=== PATIENT | male | born 1970 | race Caucasian/White ===

== ENCOUNTER 2017-08-25 09:49 | Day surgery (SDC) | payer OTHER ==
[2017-08-23 11:11] LABS: ALANINE AMINOTRANSFERASE 35 U/L (12-78); ALBUMIN 3.5 g/dL (3.4-5.0); ANION GAP 5 mmol/L (5-15); CALCIUM 8.6 mg/dL (8.5-10.1); CHLORIDE 109 mmol/L (98-107); CREATININE 0.94 mg/dL (0.7-1.3)
[2017-08-23 11:13] LABS: ALKALINE PHOSPHATASE 71 U/L (45-117); BILIRUBIN,TOTAL 0.6 mg/dL (0.2-1.0); TOTAL PROTEIN 7.4 g/dL (6.4-8.2)
[~2017-08-25] VITALS: Ht 175.3 cm; Wt 104.0 kg
[~2017-08-25 09:49] MED LIST: AMLO5TAB2 PO; LISI1TAB5 PO
[2017-08-25] MEDS ORDERED: LACTATED RINGERS 1,000 ML IV SCH (10:20)
[2017-08-25 10:34] VITALS: BP 153/94
[2017-08-25] MEDS ORDERED: NEOSPORIN OINT, 15GM ONE (11:44)
[2017-08-25] MEDS ORDERED: EPINEPHRINE 1 MG/ML, 1ML ONE (11:44)
[2017-08-25] MEDS ORDERED: BUPIVACAINE/PF 0.25% ONE (11:44)
[2017-08-25] MEDS ORDERED: EPHEDRINE 50 MG/ML, 1ML ONE (11:56)
[2017-08-25] MEDS ORDERED: FENTANYL PF 100 MCG/2ML ONE (12:00)
[2017-08-25] MEDS ORDERED: MIDAZOLAM 1 MG/ML, 2ML ONE (12:20)
[2017-08-25] MEDS ORDERED: DEXAMETHASONE 4 MG/ML, 1ML ONE ×3 (12:21)
[2017-08-25] MEDS ORDERED: CEFAZOLIN 1,000 MG ONE ×2 (12:23)
[2017-08-25] MEDS ORDERED: PROPOFOL 10 MG/ML, 20ML ONE (12:25)
[2017-08-25] MEDS ORDERED: SUCCINYLCHOLINE 20 MG/ML, 10ML ONE (12:25)
[2017-08-25] MEDS ORDERED: ONDANSETRON 2MG/ML, 2ML ONE (12:25)
[2017-08-25] MEDS ORDERED: METOCLOPRAMIDE 5 MG/ML, 2ML ONE (12:25)
[2017-08-25] MEDS ORDERED: LIDOCAINE-MPF 2% ,5ML ONE (12:25)
[2017-08-25] MEDS ORDERED: PHENYLEPHRINE 10 MG/ML ONE (12:31)
[2017-08-25] MEDS ORDERED: BUPIVACAINE/PF-EPI 0.25% 1:200K IM ONE (12:36)
[2017-08-25] MEDS ORDERED: BUPIVACAINE 0.25% ONE (13:05)
[2017-08-25] MEDS ORDERED: BUPIVACAINE/PF-EPI 0.25% 1:200K INFIL ONE (13:15)
[2017-08-25] MEDS ORDERED: OXYcodone 5 MG/5 ML ORAL.SOL UDC ONE (14:37)
[2017-08-25] MEDS ORDERED: OXYcodone 5 MG/5 ML ORAL.SOL UDC PO PRN (15:00)
[2017-08-25] MEDS ORDERED: ONDANSETRON 2MG/ML, 2ML IVPush PRN (15:00)
[2017-08-25] MEDS ORDERED: MIDAZOLAM 1 MG/ML, 2ML IV PRN (15:00)
[2017-08-25] MEDS ORDERED: HYDROmorphone 2 MG/ML, 1ML IV PRN (15:00)
[2017-08-25] MEDS ORDERED: MEPERIDINE/PF 25MG/0.5ML IVPush PRN (15:00)
[2017-08-25] MEDS ORDERED: FENTANYL PF 100 MCG/2ML IV PRN (15:00)
[2017-08-25] MEDS ORDERED: LABETALOL 5MG/ML, 20ML IV PRN (15:00)
== END 2017-08-25 19:00 ==
LOC: OUT 09:49
PROVIDERS: ATTEND Surgery
DX: M79.89 Other specified soft tissue disorders (principal); I10 Essential (primary) hypertension; Z72.89 Other problems related to lifestyle; Z98.890 Other specified postprocedural states; Z88.0 Allergy status to penicillin
CPT/HCPCS: 21933; 36415; 80053; 88304; J0171; J0330; J0690; J1100; J2250; J2370; J2405; J2704; J2765; J3010; J3490; J7120; 88305

== ENCOUNTER 2020-03-14 15:21 | Inpatient (IN) | payer OTHER ==
[~2020-03-14] VITALS: Ht 170.2 cm; Wt 106.2 kg
[~2020-03-14 15:21] MED LIST changes: +AMLO-150 PO; -AMLO5TAB2 PO; +LISI1TAB39 PO; -LISI1TAB5 PO
--- NOTE | 2020-03-14 15:58 | NUR ---
PER TREASURE CALVILLO, PT HAS (+) COVID-19. WAITING UNTIL PT HAS ROOM ASSIGNED THEN US CANBE DONE IN PT'S ROOM - US DELAY
[2020-03-14] MEDS ORDERED: ONDANSETRON 2MG/ML, 2ML IVPush ONE (16:00)
[2020-03-14] MEDS ORDERED: SODIUM CHLORIDE 0.9% 1,000ML IVBOLUS ONE (16:00)
[2020-03-14] MEDS ORDERED: MAALOX/HYOSCYAMINE/LIDOCAINE 45 ML BTL PO ONE (16:00)
[2020-03-14] MEDS ORDERED: SODIUM CHLORIDE FLUSH 10ML SYR IVF ONE (16:00)
[2020-03-14] MEDS ORDERED: FAMOTIDINE 20 MG/2 ML IV ONE (16:00)
--- NOTE | 2020-03-14 16:14 | NUR ---
US at bedside. RN at bedside.
--- NOTE | 2020-03-14 16:25 | NUR ---
US at bedside, lab at bedside, RN at bedside.
[2020-03-14] MEDS ORDERED: FAMOTIDINE 20 MG/2 ML ONE (16:27)
[2020-03-14] MEDS ORDERED: MAALOX/HYOSCYAMINE/LIDOCAINE 45 ML BTL ONE (16:27)
[2020-03-14] MEDS ORDERED: ONDANSETRON 2MG/ML, 2ML ONE (16:27)
[2020-03-14 16:48] LABS: BASOPHILS % (AUTO) 0 % (0-1); EOSINOPHILS % (AUTO) 0 % (1-7); LYMPHOCYTES % (AUTO) 16 % (22-44); MEAN CORPUSCULAR HEMOGLOBIN 29.3 pg (27.5-34.5); MEAN CORPUSCULAR HGB CONC 33.9 g/dL (33.2-36.2); MEAN PLATELET VOLUME 7.5 fL (7.4-10.4); MONOCYTES % (AUTO) 5 % (2-9); NEUTROPHILS % (AUTO) 79 % (42-75); PLATELET COUNT 164 x10^3/uL (130-400); RED BLOOD COUNT 4.86 x10^6/uL (4.38-5.82)
[2020-03-14 16:49] LABS: MD NO
[2020-03-14 16:55] LABS: ALANINE AMINOTRANSFERASE 42 U/L (12-78); ALBUMIN 3.2 g/dL (3.4-5.0); ANION GAP 3 mmol/L (5-15); CALCIUM 8.6 mg/dL (8.5-10.1); CHLORIDE 107 mmol/L (98-107); CREATININE 1.06 mg/dL (0.7-1.3)
[2020-03-14 16:57] LABS: ALKALINE PHOSPHATASE 65 U/L (45-117); BILIRUBIN,TOTAL 0.3 mg/dL (0.2-1.0); TOTAL PROTEIN 7.7 g/dL (6.4-8.2)
[2020-03-14] MEDS ORDERED: ACETAMINOPHEN 500 MG TABLET ONE (16:59)
[2020-03-14] MEDS ORDERED: KETOROLAC 30 MG/1 ML IVPush ONE (17:00)
[2020-03-14] MEDS ORDERED: ACETAMINOPHEN 500 MG TABLET PO/NG ONE (17:00)
--- NOTE | 2020-03-14 17:36 | NUR ---
per pt ok to give information to daughter adrian
--- NOTE | 2020-03-14 17:37 | NUR ---
This RN updated pt.'s daughter on phone per pt.'s permission.
[2020-03-14] MEDS ORDERED: AZITHROMYCIN 500 MG in SODIUM CHLORIDE 0.9% 250 ML IV ONE (18:30)
--- NOTE | 2020-03-14 18:35 | NUR ---
Tested pt.'s RA sat- 88%. Placed back on 3 L nasal cannula sats up to 97%.
[2020-03-14] MEDS ORDERED: DEXAMETHASONE 4 MG/ML, 1ML ONE (18:41)
--- NOTE | 2020-03-14 18:45 | NUR ---
bedside report from gurmeet ROY, pt care transferred at this time.
--- NOTE | 2020-03-14 18:52 | NUR ---
Zithromax started, dexamethasone given. Pt on 3L 02 nasal cannula. Updated on plan.
[2020-03-14] MEDS ORDERED: DEXAMETHASONE 4 MG/ML, 1ML IVPush ONE (19:00)
--- NOTE | 2020-03-14 19:02 | NUR ---
Report to KIRILL Larios.
[2020-03-14] MEDS ORDERED: DOCUSATE 100 MG CAPSULE PO PRN (19:30)
[2020-03-14] MEDS ORDERED: IBUPROFEN 600 MG TABLET PO PRN (19:30)
[2020-03-14] MEDS ORDERED: ACETAMINOPHEN 325 MG TABLET PO PRN (19:30)
--- NOTE | 2020-03-14 20:12 | NUR ---
pt moved from [facility] to hospital bed, resting comfortably, moved with a smooth and steady gait, rn standby assist. pt provided sandwich, chips and drink. Urinal emptied. nad, denies additional questions or needs at this time. no other change in condition, call light on lap, bed in lowest, [facility]. waiting for admit bed.
[2020-03-14 20:17] LABS: C-REACTIVE PROTEIN, QUANT 7.5 mg/dL (0.02-0.49)
[2020-03-14 20:24] LABS: D-DIMER (DIC) 0.72 ug/mlFEU (0.00-0.52); PROTIME 10.3 Seconds (9.6-11.5)
[2020-03-14 20:54] LABS: MICROSCOPIC AUTO
[2020-03-14 20:59] VITALS: BP 119/82
[2020-03-14] MEDS: HEPARIN 5,000 UNITS/ML, 1ML SQ SCH (21:25)
[2020-03-15 00:41] VITALS: BP 109/70
[2020-03-15] MEDS: HEPARIN 5,000 UNITS/ML, 1ML SQ SCH ×3 (05:01→20:08)
[2020-03-15 06:42] LABS: BASOPHILS % (AUTO) 0 % (0-1); EOSINOPHILS % (AUTO) 0 % (1-7); LYMPHOCYTES % (AUTO) 24 % (22-44); MEAN CORPUSCULAR HGB CONC 33.7 g/dL (33.2-36.2); MEAN PLATELET VOLUME 7.5 fL (7.4-10.4); MONOCYTES % (AUTO) 7 % (2-9); NEUTROPHILS % (AUTO) 69 % (42-75); PLATELET COUNT 177 x10^3/uL (130-400); RED BLOOD COUNT 4.71 x10^6/uL (4.38-5.82); RED CELL DISTRIBUTION WIDTH 13.4 % (9.4-14.8)
[2020-03-15 06:51] LABS: CHLORIDE 109 mmol/L (98-107)
[2020-03-15 06:58] LABS: ALANINE AMINOTRANSFERASE 44 U/L (12-78); ALBUMIN 2.9 g/dL (3.4-5.0); ALKALINE PHOSPHATASE 61 U/L (45-117); ANION GAP 5 mmol/L (5-15); BILIRUBIN,TOTAL 0.2 mg/dL (0.2-1.0); CALCIUM 8.6 mg/dL (8.5-10.1); CREATININE 0.95 mg/dL (0.7-1.3); TOTAL PROTEIN 7.1 g/dL (6.4-8.2)
[2020-03-15] MEDS ORDERED: ACETAMINOPHEN 325 MG TABLET PO PRN (07:30)
[2020-03-15 07:48] LABS: MD SCAN
[2020-03-15 08:00] VITALS: BP 118/80
[2020-03-15] MEDS: AMLODIPINE 5 MG TABLET PO SCH (08:03)
[2020-03-15] MEDS: DEXAMETHASONE 4 MG/ML, 1ML IVPush SCH (08:03)
[2020-03-15] MEDS: LISINOPRIL 20 MG TABLET PO SCH (08:04)
[2020-03-15] MEDS: SODIUM CHLORIDE 0.9% 1,000 ML IV SCH (08:06)
[2020-03-15] MEDS ORDERED: DEXAMETHASONE 4 MG/ML, 1ML IVPush SCH (09:00)
[2020-03-15] MEDS ORDERED: HYDROCHLOROTHIAZIDE 12.5 MG CAPSULE PO SCH (09:00)
[2020-03-15 12:28] VITALS: BP 119/72
[2020-03-15] MEDS: GUAIFENESIN/DM 200-20MG, 10ML UDC PO PRN ×2 (12:38→20:07)
[2020-03-15] MEDS: LEVOFLOXACIN/PMX 500MG/100ML 100 ML IV SCH (17:50)
[2020-03-15 19:07] VITALS: BP 111/72
[2020-03-16 01:17] VITALS: BP 153/91
[2020-03-16] MEDS: SODIUM CHLORIDE 0.9% 1,000 ML IV SCH ×2 (02:00→17:37)
[2020-03-16] MEDS: HEPARIN 5,000 UNITS/ML, 1ML SQ SCH ×3 (04:35→21:18)
[2020-03-16 07:01] LABS: BASOPHILS % (AUTO) 0 % (0-1); EOSINOPHILS % (AUTO) 0 % (1-7); LYMPHOCYTES % (AUTO) 16 % (22-44); MEAN CORPUSCULAR HGB CONC 33.7 g/dL (33.2-36.2); MEAN PLATELET VOLUME 7.2 fL (7.4-10.4); MONOCYTES % (AUTO) 6 % (2-9); NEUTROPHILS % (AUTO) 78 % (42-75); PLATELET COUNT 209 x10^3/uL (130-400); RED BLOOD COUNT 4.45 x10^6/uL (4.38-5.82); RED CELL DISTRIBUTION WIDTH 13.2 % (9.4-14.8)
[2020-03-16 07:07] LABS: MD NO
[2020-03-16 07:21] VITALS: BP 130/82
[2020-03-16] MEDS: DEXAMETHASONE 4 MG/ML, 1ML IVPush SCH (08:24)
[2020-03-16] MEDS: AMLODIPINE 5 MG TABLET PO SCH (08:24)
[2020-03-16] MEDS: LISINOPRIL 20 MG TABLET PO SCH (08:25)
[2020-03-16 12:29] VITALS: BP 119/73
[2020-03-16] MEDS: GUAIFENESIN 200 MG TABLET PO SCH ×2 (16:10→21:18)
[2020-03-16] MEDS ORDERED: ZOLPIDEM 5MG TABLET PO PRN (16:30)
[2020-03-16] MEDS: LEVOFLOXACIN/PMX 500MG/100ML 100 ML IV SCH (17:31)
[2020-03-16 19:03] VITALS: BP 130/82
[2020-03-16] MEDS: FAMOTIDINE 20 MG/2 ML IVPush SCH (21:18)
[2020-03-17 01:17] VITALS: BP 110/71
[2020-03-17 05:27] LABS: C-REACTIVE PROTEIN, QUANT 5.2 mg/dL (0.02-0.49)
[2020-03-17] MEDS: GUAIFENESIN 200 MG TABLET PO SCH ×3 (05:33→17:52)
[2020-03-17] MEDS: HEPARIN 5,000 UNITS/ML, 1ML SQ SCH ×3 (05:33→20:40)
[2020-03-17 08:26] VITALS: BP 115/78
[2020-03-17] MEDS: FAMOTIDINE 20 MG/2 ML IVPush SCH ×2 (08:32→20:40)
[2020-03-17] MEDS: DEXAMETHASONE 4 MG/ML, 1ML IVPush SCH (08:32)
[2020-03-17] MEDS: AMLODIPINE 5 MG TABLET PO SCH (08:32)
[2020-03-17] MEDS: LISINOPRIL 20 MG TABLET PO SCH (08:32)
[2020-03-17] MEDS: SODIUM CHLORIDE 0.9% 1,000 ML IV SCH (10:48)
[2020-03-17 13:50] VITALS: BP 117/78
[2020-03-17] MEDS: LEVOFLOXACIN/PMX 500MG/100ML 100 ML IV SCH (17:52)
[2020-03-17 18:47] VITALS: BP 125/78
[2020-03-18] MEDS: GUAIFENESIN 200 MG TABLET PO SCH ×4 (00:27→16:35)
[2020-03-18 00:31] VITALS: BP 123/79
[2020-03-18] MEDS: SODIUM CHLORIDE 0.9% 1,000 ML IV SCH ×2 (05:25→21:34)
[2020-03-18] MEDS: HEPARIN 5,000 UNITS/ML, 1ML SQ SCH ×3 (05:26→21:34)
[2020-03-18 06:50] VITALS: BP 116/77
[2020-03-18] MEDS: FAMOTIDINE 20 MG/2 ML IVPush SCH (08:00)
[2020-03-18] MEDS: DEXAMETHASONE 4 MG/ML, 1ML IVPush SCH (08:01)
[2020-03-18] MEDS: LISINOPRIL 20 MG TABLET PO SCH (08:01)
[2020-03-18] MEDS: AMLODIPINE 5 MG TABLET PO SCH (08:03)
[2020-03-18 12:28] VITALS: BP 104/67
[2020-03-18] MEDS: LEVOFLOXACIN/PMX 500MG/100ML 100 ML IV SCH (18:24)
[2020-03-18 20:29] VITALS: BP 115/68
[2020-03-18] MEDS: FAMOTIDINE 20 MG TABLET PO SCH (21:34)
[2020-03-19 01:41] VITALS: BP 111/74
[2020-03-19] MEDS: HEPARIN 5,000 UNITS/ML, 1ML SQ SCH ×3 (05:34→20:52)
[2020-03-19] MEDS: GUAIFENESIN 200 MG TABLET PO SCH ×5 (05:34→20:52)
[2020-03-19 07:12] VITALS: BP 112/76
[2020-03-19] MEDS: AMLODIPINE 5 MG TABLET PO SCH (08:47)
[2020-03-19] MEDS: LISINOPRIL 20 MG TABLET PO SCH (08:47)
[2020-03-19] MEDS: DEXAMETHASONE 4 MG/ML, 1ML IVPush SCH (08:47)
[2020-03-19] MEDS: FAMOTIDINE 20 MG TABLET PO SCH ×2 (08:47→20:52)
[2020-03-19 12:44] VITALS: BP 123/79
[2020-03-19] MEDS: SODIUM CHLORIDE 0.9% 1,000 ML IV SCH (14:21)
[2020-03-19] MEDS: LEVOFLOXACIN/PMX 500MG/100ML 100 ML IV SCH (18:22)
[2020-03-19 20:54] VITALS: BP 118/77
[2020-03-20 00:03] VITALS: BP 118/77
[2020-03-20] MEDS: GUAIFENESIN 200 MG TABLET PO SCH (05:22)
[2020-03-20] MEDS: HEPARIN 5,000 UNITS/ML, 1ML SQ SCH (05:22)
[2020-03-20 06:40] LABS: MEAN CORPUSCULAR HEMOGLOBIN 29.5 pg (27.5-34.5); MEAN CORPUSCULAR HGB CONC 34.3 g/dL (33.2-36.2); MEAN PLATELET VOLUME 7.2 fL (7.4-10.4); PLATELET COUNT 378 x10^3/uL (130-400); RED BLOOD COUNT 4.72 x10^6/uL (4.38-5.82); RED CELL DISTRIBUTION WIDTH 13.1 % (9.4-14.8)
[2020-03-20 06:43] LABS: ANION GAP 5 mmol/L (5-15); C-REACTIVE PROTEIN, QUANT 0.71 mg/dL (0.02-0.49); CALCIUM 8.4 mg/dL (8.5-10.1); CHLORIDE 115 mmol/L (98-107); CREATININE 0.89 mg/dL (0.7-1.3)
[2020-03-20 07:24] LABS: MD YES
[2020-03-20 07:25] LABS: BAND#(MANUAL) 0.28 x10^3/uL; BANDS%(MANUAL) 3 % (0-7); LYMPH#(MANUAL) 1.97 x10^3/uL (1-3.4); LYMPHS% (MANUAL) 21 % (22-44); METAMYELOCYTES# (MANUAL) 0.28 x10^3/uL (0-0); METAMYELOCYTES% (MANUAL) 3 % (0-1); MONOS#(MANUAL) 0.56 x10^3/uL (0.3-2.7); MONOS% (MANUAL) 6 % (2-9); MYELOCYTES# (MANUAL) 0.09 x10^3/uL (0-0); MYELOCYTES% (MANUAL) 1 % (0-0); SEGS% (MANUAL) 66 % (42-75)
[2020-03-20 07:26] VITALS: BP 121/80
[2020-03-20 07:26] LABS: <PLATELET ESTIMATE> ADEQUATE; <PLT MORPHOLOGY> NORMAL PLT MORPH; <RBC MORPHOLOGY> NORMAL
[2020-03-20] MEDS: SODIUM CHLORIDE 0.9% 1,000 ML IV SCH (07:30)
[2020-03-20] MEDS: AMLODIPINE 5 MG TABLET PO SCH (08:10)
[2020-03-20] MEDS: DEXAMETHASONE 4 MG/ML, 1ML IVPush SCH (08:10)
[2020-03-20] MEDS: FAMOTIDINE 20 MG TABLET PO SCH (08:10)
[2020-03-20] MEDS: LISINOPRIL 20 MG TABLET PO SCH (08:10)
[2020-03-20] MEDS ORDERED: PRED5TAB PO (09:26)
== END 2020-03-20 11:45 | disposition home or self-care (01) | DRG 177 ==
LOC: ED 17:07 → EDIP 19:05 → 3N 20:57
PROVIDERS: ADMIT Family Medicine; ATTEND Internal Medicine
DX: U07.1 COVID-19 (principal); J12.89 Other viral pneumonia; J96.01 Acute respiratory failure with hypoxia; I10 Essential (primary) hypertension; G47.30 Sleep apnea, unspecified; E66.9 Obesity, unspecified; Z68.36 Body mass index [BMI] 36.0-36.9, adult; Z88.0 Allergy status to penicillin
CPT/HCPCS: 36415; 36600; 71045; 76700; 80048; 80053; 81001; 82728; 82803; 83605; 83615; 83690; 84145; 85025; 85049; 85379; 85384; 85610; 85730; 86140; 87040; 87070; 87205; 93005; 96374; 96375; 99285; G0378; J0456; J1100; J1644; J1956; J2405; J7030; J7050; U0003